=== PATIENT | male | born 1985 | race Caucasian/White ===

== ENCOUNTER → 2019-12-30 11:09 | Outpatient (BNVA) | payer OTHER, SELFPAY | PROVIDERS: PCP Nurse Practitioner Family; Referring Provider Nurse Practitioner Family; Visit Provider Hospitalist | DX: J45.50 Severe persistent asthma, uncomplicated (principal); J18.9 Pneumonia, unspecified organism; G47.30 Sleep apnea, unspecified; Z79.899 Other long term (current) drug therapy | CPT/HCPCS: 99214 ==

== ENCOUNTER 2020-03-07 14:37 | Outpatient (REF) | payer OTHER, SELFPAY | END 2020-03-07 14:38 | disposition home or self-care (01) | LOC: HO.LNP 14:37 | PROVIDERS: Visit Provider Family Medicine | DX: Z20.828 Contact with and (suspected) exposure to other viral communicable diseases (principal) | CPT/HCPCS: U0003 ==

== ENCOUNTER → 2020-04-06 15:13 | Outpatient (BNVA) | payer OTHER, SELFPAY | PROVIDERS: PCP Nurse Practitioner Family; Visit Provider Hospitalist ==

== ENCOUNTER → 2020-06-14 09:11 | Outpatient (BNVA) | payer OTHER, SELFPAY | PROVIDERS: PCP Nurse Practitioner Family; Visit Provider Hospitalist ==

== ENCOUNTER 2020-06-14 12:36 | Outpatient (REF) | payer OTHER, SELFPAY ==
[2020-06-14 16:43] LABS: SARS COV2 PCR INHOUSE POSITIVE (Negative)
== END 2020-06-14 12:37 | disposition home or self-care (01) ==
LOC: HO.LAB 12:36
PROVIDERS: Visit Provider Internal Medicine
DX: Z20.822 Contact with and (suspected) exposure to COVID-19 (principal)
CPT/HCPCS: C9803; U0003

== ENCOUNTER 2020-08-03 13:04 | Outpatient (REF) | payer OTHER, SELFPAY ==
[2020-08-03 14:36] LABS: MANUAL DIFF FLAG NO
[2020-08-03 14:44] LABS: Basophils Percent Auto 0.4 % (0-2); Eosinophils Absolute Auto 0.1 X10*3/uL (0.0-0.4); Eosinophils Percent Auto 1.5 % (0-4); Hematocrit 41.3 % (42-52); Imm Gran Abs Auto 0.02 X10*3/uL (0.00-0.03); Imm Gran Pct Auto 0.2 % (0.0-0.4); Lymphocytes Absolute Auto 2.4 X10*3/uL (1.2-4.9); Mean Corpuscular HGB Conc 31.5 g/dl (31.0-36.0); Mean Corpuscular Volume 79.4 fL (80-98); Mean Platelet Volume 11.4 fL (9.4-12.4); Monocytes Absolute Auto 0.4 X10*3/uL (0.1-1.2); Monocytes Percent Auto 4.7 % (2-11); Neutrophils Absolute Auto 5.6 X10*3/uL (2.0-8.3); Neutrophils Percent Auto 65.2 % (45-73); Platelet Count 249 X10*3/uL (160-400); Red Cell Distribution Width 13.9 % (11.0-16.0); White Blood Count 8.6 X10*3/uL (4.8-10.8)
[2020-08-03 15:30] LABS: Erythrocyte Sedimentation Rate 7 MM/HR (0-15)
[2020-08-06 07:39] LABS: SARS COV2 IgG Positive (Negative)
[2020-08-06 19:17] LABS: Immunoglobulin G Subclass 1 514 mg/dL (382-929); Immunoglobulin G Subclass 2 230 mg/dL (241-700); Immunoglobulin G Subclass 3 35 mg/dL (22-178); Immunoglobulin G Subclass 4 56.2 mg/dL (4-86); Immunoglobulin G Total 915 mg/dL (600-1640)
[2020-08-09 13:47] LABS: Asperg fumigatus Precip Abs NEGATIVE (NEGATIVE); Micropoly faeni Abs NEGATIVE (NEGATIVE); Pigeon serum Abs NEGATIVE (NEGATIVE); Saccharo pora viridis Abs NEGATIVE (NEGATIVE); Thermo candidus Abs NEGATIVE (NEGATIVE); Thermoa vulgaris #1 NEGATIVE (NEGATIVE)
== END 2020-08-03 13:05 | disposition home or self-care (01) ==
LOC: HO.LAB 13:04
PROVIDERS: PCP Nurse Practitioner Family; Visit Provider Hospitalist
DX: J45.51 Severe persistent asthma with (acute) exacerbation (principal); R91.8 Other nonspecific abnormal finding of lung field; J18.9 Pneumonia, unspecified organism; J44.9 Chronic obstructive pulmonary disease, unspecified
CPT/HCPCS: 36415; 82784; 82785; 85025; 85652; 86003; 86331; 86606; 86609; 86769; 99212

== ENCOUNTER → 2021-01-11 12:57 | Outpatient (BNVA) | payer OTHER, SELFPAY | PROVIDERS: PCP Nurse Practitioner Family; Visit Provider Hospitalist | DX: J45.51 Severe persistent asthma with (acute) exacerbation (principal); J18.9 Pneumonia, unspecified organism; J44.9 Chronic obstructive pulmonary disease, unspecified | CPT/HCPCS: 99212 ==

== ENCOUNTER → 2021-03-29 13:20 | Outpatient (BNVA) | payer OTHER, SELFPAY | PROVIDERS: PCP Nurse Practitioner Family; Visit Provider Hospitalist | DX: J45.51 Severe persistent asthma with (acute) exacerbation (principal); J18.9 Pneumonia, unspecified organism; J44.9 Chronic obstructive pulmonary disease, unspecified | CPT/HCPCS: 99212 ==

== ENCOUNTER → 2022-01-24 14:19 | Outpatient (BNVA) | payer OTHER, SELFPAY | PROVIDERS: PCP Nurse Practitioner Family; Visit Provider Hospitalist | DX: J45.51 Severe persistent asthma with (acute) exacerbation (principal); J18.9 Pneumonia, unspecified organism; J44.9 Chronic obstructive pulmonary disease, unspecified; G47.33 Obstructive sleep apnea (adult) (pediatric); Z99.89 Dependence on other enabling machines and devices | CPT/HCPCS: 99212 ==

== ENCOUNTER → 2022-04-28 19:30 | Outpatient (REF) | payer OTHER, SELFPAY | LOC: HO.SL 19:30 | PROVIDERS: PCP Nurse Practitioner Family; Visit Provider Hospitalist | DX: G47.33 Obstructive sleep apnea (adult) (pediatric) (principal) | CPT/HCPCS: 95811 ==

== ENCOUNTER 2024-04-05 10:40 | Outpatient (AMB) | payer OTHER, SELFPAY ==
[2024-04-05 10:53] VITALS: BP 140/82; PULSE 114; O2SAT 99; BMI 39.6
--- NOTE | 2024-04-05 10:53 | MHC.OFFWIV ---
Intake Vital Signs 04/05/24 10:53 Height 5 ft 4 in Weight 231 lb BMI 39.6 BP 140/82 H Blood Pressure Location Lt brachial Position Sitting Pulse 114 H Pulse Source Pulse Oximeter Pulse Oximetry (%) 99 Oxygen Delivery Method Room Air Intake Visit Reasons: EP pain & swollen RT hand Intake Note: Pt presents to the office today for c/o pain and swelling in his right hand x5 months. Pt has a history of right hand tendon repair about 15 years ago. Pt states he also has numbness and tingling in his right hand. Patient Tobacco Use Status: Former Tobacco user Allergies ampicillin Allergy (Severe, Verified 04/05/24 10:53) Rash penicillin V Allergy (Mild, Verified 04/05/24 10:53) RASH HPI HPI Comments History of Present Illness Details History of Present Illness - The patient is a 38 year old male presenting with hand pain and swelling. - He has a history of surgical intervention on hand tendon lacerations (punching a taillight) from childhood. - The pain and swelling started approximately 5.5 months ago, with the hand becoming severely swollen and purple. - Various at-home treatments like wrappings and tiger balm have been ineffective. - The patient has not undergone previous imaging or received medical evaluation for the current hand issue. - There are no familial histories of gout or kidney issues, reducing risk factors for certain conditions. - There is numbness in the hand and difficulty in making a fist, along with pain that might suggest arthritis. - No reported shoulder injury, but shoulder pain is present, resulting in the use of a sling for comfort. Physical Exam General: Cooperative, healthy appearing, comfortable, no acute distress and well developed Orientation: Patient oriented x3 Limitations: No limitations Head: Normal to inspection Ears: Hearing grossly normal bilaterally Nose: Normal External nose present Face and sinus: normal facial exam Eyes: Appearance normal, both eyes and all related structures Neck: Normal visual inspection and Yes full ROM Respiratory: Normal respiratory effort and able to speak in complete sentences Skin: no rashes noted Neuro: Patient oriented x3 Extremities: as below [facility] Medical History (Updated 04/05/24 @ 11:12 by Giuliana Martinez PA-C) GALE on CPAP Asthma-COPD overlap syndrome COVID-19 Pneumonitis Asthma Family History Father Substance use disorder Mental health disorder Sister Mental health disorder Brother Mental health disorder Other Asthma Social History Housing: House Patient Tobacco Use Status: Former Tobacco user e-Cigarette/Vaping Use: Never Used Second Hand Smoke Exposure: No service: No Current occupational status: unemployed Cognitive needs: No Hearing needs: No Vision needs: No Review of Systems Const All systems reviewed & are unremarkable except as noted in HPI and below Physical Exam Vital Signs: Last Vital Signs Pulse 135 H 04/05/24 10:53 BP 140/82 H 04/05/24 10:53 Pulse Ox 99 04/05/24 10:53 Oxygen Delivery Method Room Air 04/05/24 10:53 BMI result Body Mass Index 39.6 Extrem Left upper extremity: hand Details: abnormal to inspection (swelling, surgical scars across dorsal aspect of MCP's), normal capillary refill, neuromotor exam abnormal Details: thumb ADduction abnormal Details: weak and fingers 2-5 ABduction abnormal Details: weak, tendon exam normal, vascular exam Details: normal capillary refill, abnormal ROM of finger Details: unable to flex Location: of all digits and swelling (slight throughout); no tenderness, no abrasions, no lacerations and no ecchymosis Assessment & Plan Assessment & Plan (1) Right hand pain: Code(s): M79.641 - Pain in right hand Plan: Plan I have arranged for an x-ray of the patient's hand to investigate possible causes of the pain and swelling, such as osteoarthritis or other joint issues. The patient's history of tendon surgery and significant hand pain could suggest OA, RA or complications from past surgeries. Although familial history makes certain conditions like gout less probable, the presentation of symptoms and current pain suggest a potential musculoskeletal issue that requires detailed imaging for further management. Nerve involvement, as indicated by numbness, will be reevaluated following the x-ray results. The patient has been informed about the procedure and will return for follow-up discussion post-imaging to formulate an appropriate management plan. Home efforts to alleviate the issue have proven ineffective, and further diagnostic steps are essential to clarify the course of treatment. My interpretation of hand XR is negative for acute fx or dislocations, bone density appears low, OA vs RA. Will give steroid taper and will send message to PCP for possible Rheum workup vs Hand Ortho referral. Pt has PCP appt in October. Patient was informed and verbally consented to the use of an ambient scribe for clinic note documentation during this visit. Orders: Orders XR hand RT min 3V Today M79.641 - Pain in right hand Medications: New methylprednisolone PO PER PKG DIR for 6 days 21 ea 0RF Coding Level of Care Code Est Pt Level 4 (47331) Diagnoses Right hand pain M79.641
== END 2024-04-05 11:34 | disposition home or self-care (01) ==
PROVIDERS: PCP Nurse Practitioner Family; Visit Provider Physician Assistant
DX: M79.641 Pain in right hand (principal)

== ENCOUNTER → 2024-04-05 11:17 | Outpatient (BNV) | payer OTHER, SELFPAY | PROVIDERS: PCP Nurse Practitioner Family; Visit Provider Radiology Diagnostic Radiology | DX: M85.80 Other specified disorders of bone density and structure, unspecified site (principal) | CPT/HCPCS: 73130 ==

== ENCOUNTER 2024-05-18 13:36 | Outpatient (REF) | payer OTHER, SELFPAY ==
[2024-05-18 18:18] LABS: Influenza A PCR NEGATIVE (Negative); Influenza B PCR NEGATIVE (Negative); Resp Syncy Virus RNA Qual PCR NEGATIVE (Negative); SARS COV2 PCR INHOUSE NEGATIVE (Negative)
== END 2024-05-18 13:37 | disposition home or self-care (01) ==
LOC: HO.LAB 13:36
PROVIDERS: PCP Nurse Practitioner Family; Visit Provider Physician Assistant
DX: J45.901 Unspecified asthma with (acute) exacerbation (principal); R09.89 Other specified symptoms and signs involving the circulatory and respiratory systems; B34.9 Viral infection, unspecified; R05.8 Other specified cough
CPT/HCPCS: 0241U; 99212

== ENCOUNTER 2024-05-18 13:36 | Outpatient (AMB) | payer OTHER, SELFPAY ==
[2024-05-18 14:08] VITALS: BP 132/82; PULSE 89; TEMP 36.7; O2SAT 96; BMI 39.6
--- NOTE | 2024-05-18 14:08 | MHC.OFFWIV ---
Intake Vital Signs 05/18/24 14:08 Height 5 ft 4 in Weight 231 lb BMI 39.6 BP 132/82 Blood Pressure Location Lt brachial Position Sitting Pulse 89 Pulse Source Pulse Oximeter Temp 98.1 F Temp Source Oral Pulse Oximetry (%) 96 Oxygen Delivery Method Room Air Intake Visit Reasons: EP-asthma,coughing,[id number] Intake Note: pt is here for asthma, coughing, and congestion Patient Tobacco Use Status: Former Tobacco user Allergies ampicillin Allergy (Severe, Verified 05/18/24 14:08) Rash penicillin V Allergy (Mild, Verified 05/18/24 14:08) RASH Do you need a note to return to daycare/school/sports/work: Yes HPI HPI Comments History of Present Illness Details History - The patient is a 39-year-old male presenting with worsening asthma symptoms, worsening cough and nasal congestion. - Reports several-month duration nasal congestion with worsening over the last week. - Current complaints involve increased shortness of breath, reliance on an nebulizer solution, and limited efficacy from albuterol inhaler. - Household viral illness mentioned - Denies fever, ear pain or sinus pain - Nasal pressure reducing due to drainage; continues to use Flonase and Theraflu for symptom relief. - Asthma treatment history includes prednisone use, usually a tapering dose. - has follow up with Pulmonology coming up in a few weeks, anticipating med changes Physical Exam General: Cooperative, healthy appearing, comfortable and no acute distress Orientation/consciousness: Patient oriented x3 Limitations: No limitations Head: Normal to inspection Ears: Hearing grossly normal bilaterally, external ears normal and TM's normal bilaterally Nose: Normal external nose present, Normal nares present and No nasal discharge present Face and sinus: Normal facial exam and Yes sinuses nontender Mouth: Normal oral and palatal mucosa present and moist mucous membranes Throat: Yes tonsils normal, Yes uvula midline. Posterior oropharynx erythema Eyes: Appearance normal, both eyes and all related structures Neck: Normal visual inspection Respiratory: Clear to auscultation bilaterally. Normal respiratory effort, able to speak in complete sentences, Actively coughing, no respiratory distress, not tachypneic, no tripod positioning and no use of accessory muscles Cardiovascular: Regular rate and rhythm. Normal S1 and S2 Skin: No rashes or lesions noted Neuro: Patient oriented x3 Extremities: Normal to inspection and Yes no clubbing, cyanosis or edema [facility] Medical History (Updated 05/18/24 @ 14:27 by Giuliana Martinez PA-C) GALE on CPAP Asthma-COPD overlap syndrome COVID-19 Pneumonitis Asthma Family History Father Substance use disorder Mental health disorder Sister Mental health disorder Brother Mental health disorder Other Asthma Social History Housing: House Patient Tobacco Use Status: Former Tobacco user e-Cigarette/Vaping Use: Never Used Second Hand Smoke Exposure: No service: No Current occupational status: unemployed Cognitive needs: No Hearing needs: No Vision needs: No Review of Systems Const All systems reviewed & are unremarkable except as noted in HPI and below Physical Exam Vital Signs: Last Vital Signs Temp 98.1 F 05/18/24 14:08 Pulse 89 05/18/24 14:08 BP 132/82 05/18/24 14:08 Pulse Ox 96 05/18/24 14:08 Oxygen Delivery Method Room Air 05/18/24 14:08 BMI result Body Mass Index 39.6 Assessment & Plan Assessment & Plan (1) Asthma exacerbation, mild: Code(s): J45.901 - Unspecified asthma with (acute) exacerbation Plan: Plan I will prescribe a course of prednisone in a tapering regimen to manage the asthma exacerbation and assist with symptom relief. A nebulizer solution will be dispensed to replace treatments at the patient's requested pharmacy. Influenza, COVID-19, and RSV testing will be initiated to rule out viral causes, with results communicated through the patient portal. Ongoing relief measures will include the use of an albuterol inhaler, nasal saline, and Flonase, as well as [id number] medication such as Theraflu for symptomatic relief. Future asthma treatment adjustments and follow-up plans may depend on test outcomes and symptom progression. Patient was informed and verbally consented to the use of an ambient scribe for clinic note documentation during this visit (2) Acute viral syndrome: Code(s): B34.9 - Viral infection, unspecified Plan: as above Orders: Orders SARS-CoV2/FLU/RSV Today R09.89 - Other specified symptoms and signs involving the circulatory and respiratory systems Medications: New methylprednisolone PO PER PKG DIR for 6 days 21 ea 0RF Refilled albuterol sulfate 2.5 mg (3 mL) inhalation Q4H 30 days PRN 180 mL 0RF shortness of breath or wheezing Coding Level of Care Code Est Pt Level 3 (74286) Diagnoses Asthma exacerbation, mild J45.901 Acute viral syndrome B34.9
== END 2024-05-18 14:36 | disposition home or self-care (01) ==
PROVIDERS: PCP Nurse Practitioner Family; Visit Provider Physician Assistant
DX: J45.901 Unspecified asthma with (acute) exacerbation (principal); B34.9 Viral infection, unspecified

== ENCOUNTER 2024-05-18 13:37 | Outpatient (REF) | payer OTHER, SELFPAY ==
[2024-05-18 16:10] LABS: MANUAL DIFF FLAG NO
[2024-05-18 16:29] LABS: Basophils Percent Auto 0.5 % (0-2); Eosinophils Absolute Auto 0.5 X10*3/uL (0.0-0.4); Eosinophils Percent Auto 6.8 % (0-4); Hematocrit 35.9 % (42.0-52.0); Hemoglobin 11.4 g/dl (14.0-18.0); Imm Gran Abs Auto 0.02 X10*3/uL (0.00-0.03); Imm Gran Pct Auto 0.3 % (0.0-0.4); Lymphocytes Absolute Auto 1.9 X10*3/uL (1.2-4.9); Lymphocytes Percent Auto 28.7 % (20-40); Mean Corpuscular HGB Conc 31.8 g/dl (31.0-36.0); Mean Corpuscular Hemoglobin 26.3 pg (27.0-33.0); Mean Corpuscular Volume 82.9 fL (80.0-98.0); Mean Platelet Volume 11.2 fL (9.4-12.4); Monocytes Absolute Auto 0.5 X10*3/uL (0.1-1.2); Monocytes Percent Auto 7.5 % (2-11); Neutrophils Absolute Auto 3.8 x10*3/uL (2.0-8.3); Neutrophils Percent Auto 56.2 % (45-73); Platelet Count 226 X10*3/uL (160-400); Red Blood Count 4.33 X10*6/uL (4.60-5.80); Red Cell Distribution Width 13.9 % (11.0-16.0); White Blood Count 6.7 X10*3/uL (4.8-10.8)
[2024-05-18 17:03] LABS: Rheumatoid Factor < 13.0 IU/mL (<15.0)
[2024-05-18 17:14] LABS: Alanine Aminotransferase 8 U/L (0-40); Albumin Level 4.2 g/dL (3.5-5.0); Alkaline Phosphatase 61 U/L (39-117); Anion Gap 11 (12-20); Aspartate Amino Transferase 16 U/L (5-37); Bilirubin Total 0.3 mg/dL (0.0-1.0); Blood Urea Nitrogen 13 mg/dL (9-16); C Reactive Protein 2.31 mg/dL (< or = 0.50); Calcium 9.3 mg/dL (8.4-10.2); Carbon Dioxide 29 mmol/L (22-29); Chloride 107 mmol/L (96-108); Estimated Glomerular Filt Rate > 60; Glucose Random 92 mg/dL (60-115); Potassium 3.6 mmol/L (3.3-5.1); Sodium 143 mmol/L (135-145); Total Protein 7.3 g/dL (6.5-8.0)
[2024-05-18 18:50] LABS: Erythrocyte Sedimentation Rate 18 MM/HR (0-15)
[2024-05-22 08:19] LABS: Cyclic Citrullinated Peptide <16 UNITS
[2024-05-24 09:04] LABS: Anti Nuclear Antibody Screen NEGATIVE (NEGATIVE)
== END 2024-05-18 13:38 | disposition home or self-care (01) ==
LOC: HO.HMGCLDS 13:37
PROVIDERS: PCP Nurse Practitioner Family; Visit Provider Nurse Practitioner Family
DX: M19.049 Primary osteoarthritis, unspecified hand (principal)
CPT/HCPCS: 36415; 80053; 85025; 85652; 86038; 86140; 86200; 86431

== ENCOUNTER 2024-05-24 09:54 | Outpatient (REF) | payer OTHER, SELFPAY ==
[2024-05-24 13:21] LABS: MANUAL DIFF FLAG NO
[2024-05-24 13:37] LABS: Basophils Absolute Auto 0.1 X10*3/uL (0.0-0.2); Basophils Percent Auto 0.5 % (0-2); Eosinophils Absolute Auto 0.1 X10*3/uL (0.0-0.4); Eosinophils Percent Auto 0.5 % (0-4); Hemoglobin 12.3 g/dl (14.0-18.0); Imm Gran Abs Auto 0.06 X10*3/uL (0.00-0.03); Imm Gran Pct Auto 0.6 % (0.0-0.4); Immature Retic Fraction 22.1 % (2.3-13.4); Lymphocytes Absolute Auto 2.8 X10*3/uL (1.2-4.9); Lymphocytes Percent Auto 26.4 % (20-40); Mean Corpuscular HGB Conc 30.8 g/dl (31.0-36.0); Mean Corpuscular Hemoglobin 25.7 pg (27.0-33.0); Mean Corpuscular Volume 83.5 fL (80.0-98.0); Mean Platelet Volume 11.5 fL (9.4-12.4); Monocytes Absolute Auto 0.5 X10*3/uL (0.1-1.2); Monocytes Percent Auto 4.5 % (2-11); Neutrophils Absolute Auto 7.2 x10*3/uL (2.0-8.3); Neutrophils Percent Auto 67.5 % (45-73); Platelet Count 274 X10*3/uL (160-400); Red Blood Count 4.79 X10*6/uL (4.60-5.80); Retic HGB Equivalent 29.9 pg (30.0-35.0); Reticulocyte Percent 2.2 % (0.5-1.8); Reticulocytes Absolute 0.104 X10*6/uL (0.026-0.095); White Blood Count 10.6 X10*3/uL (4.8-10.8)
[2024-05-24 14:24] LABS: Alanine Aminotransferase 17 U/L (0-40); Albumin Level 4.5 g/dL (3.5-5.0); Alkaline Phosphatase 60 U/L (39-117); Anion Gap 14 (12-20); Aspartate Amino Transferase 17 U/L (5-37); Bilirubin Total 0.4 mg/dL (0.0-1.0); Blood Urea Nitrogen 18 mg/dL (9-16); Calcium 9.5 mg/dL (8.4-10.2); Carbon Dioxide 26 mmol/L (22-29); Chloride 105 mmol/L (96-108); Estimated Glomerular Filt Rate > 60; Glucose Random 83 mg/dL (60-115); Iron 48 mcg/dL (45-160); Percent Iron Saturation 17 % (15-50); Sodium 141 mmol/L (135-145); Total Iron Binding Capacity 286 mcg/dL (228-428); Total Protein 8.1 g/dL (6.5-8.0); Unsaturated Iron Binding 238 ug/dL
[2024-05-24 14:33] LABS: Folate 9.4 ng/mL (> or = 4.0); Vitamin B12 539 pg/mL (200-900)
[2024-05-24 15:22] LABS: Ferritin 61 ng/mL (20-250)
[2024-05-24 15:34] LABS: Lactate Dehydrogenase 362 U/L (118-273)
[2024-05-26 14:38] LABS: Hematocrit 38.8 % (38.5-50.0); Hemoglobin 12.6 g/dL (13.2-17.1); MCH 26.4 pg (27.0-33.0); MCV 81.3 fL (80.0-100.0); RBC 4.77 Million/uL (4.20-5.80); RDW 13.3 % (11.0-15.0)
== END 2024-05-24 09:55 | disposition home or self-care (01) ==
LOC: HO.HMGCLDS 09:54
PROVIDERS: PCP Nurse Practitioner Family; Visit Provider Nurse Practitioner Family
DX: D64.9 Anemia, unspecified (principal)
CPT/HCPCS: 36415; 80053; 82607; 82728; 82746; 83020; 83540; 83615; 85014; 85018; 85025; 85041; 85045

== ENCOUNTER 2024-05-26 09:42 | Outpatient (REF) | payer OTHER, SELFPAY ==
[2024-05-26 14:12] LABS: Haptoglobin 180 mg/dL (14-258)
== END 2024-05-26 09:43 | disposition home or self-care (01) ==
LOC: HO.HMGCLDS 09:42
PROVIDERS: PCP Nurse Practitioner Family; Visit Provider Nurse Practitioner Family
DX: D64.9 Anemia, unspecified (principal)
CPT/HCPCS: 36415; 83010

== ENCOUNTER 2024-06-08 12:42 | Outpatient (AMB) | payer OTHER, SELFPAY ==
[2024-06-08 12:43] VITALS: BP 122/80; PULSE 109; O2SAT 97
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
== END 2024-06-08 13:13 | disposition home or self-care (01) ==
PROVIDERS: PCP Nurse Practitioner Family; Visit Provider Physician Assistant
DX: T14.8XXA Other injury of unspecified body region, initial encounter (principal)

== ENCOUNTER → 2024-06-08 12:42 | Outpatient (BNVA) | payer OTHER, SELFPAY | PROVIDERS: PCP Nurse Practitioner Family; Visit Provider Physician Assistant ==

== ENCOUNTER 2024-07-08 15:03 | Outpatient (AMB) | payer OTHER, SELFPAY ==
--- NOTE | 2024-07-08 15:05 | A.OFFVIS_ITS ---
Vital Signs 07/08/24 15:06 Height 5 ft 4 in Weight 232 lb 9.403 oz BMI 39.9 BP 110/68 Blood Pressure Location Lt brachial Position Sitting Pulse 95 Pulse Source Pulse Oximeter Pulse Oximetry (%) 99 Oxygen Delivery Method Room Air Intake Visit Reasons: Re-establish care/Asthma Child Welfare Specialist Required: No Allergies ampicillin Allergy (Severe, Verified 07/08/24 15:09) Rash penicillin V Allergy (Mild, Verified 07/08/24 15:09) RASH HPI Comments Details: The patient is a 39 y/o gentleman with severe persistent asthma in addition to her sleep apnea. Her having his her asthma. Her been on aggressive respiratory regimen without any significant improvement. However, Trelegy has been partially helpful. I do believe that the higher dose trelegy 20omcg will be more effective for him. However, he did tell me his insurance company will no longer is going to cover in the year 2020 will have to find a different regimen. Based on his persistent symptoms with aggressive respiratory regimen I do believe that he would be a good candidate for biologic therapy. I will request additional blood work to see if he qualifies. In regards of his temp apnea who having some issues with air leakage through the mask. Needs to find any mask. We can always him come in with our respiratory therapist to be able to address his mask fitting issues. 04/06/2020 the patient has a telephone visit today. He did have an exposure to COVID-19 so therefore he is taking the Advil cautions. He continues to have shortness of breath and wheezing. Does use his rescue inhaler on a daily basis. He has been using the Trelegy inhaler which appears to be very effective for him and he has been feeling better with it. However, continues to be symptomatic regularly. Therefore his asthma still uncontrolled. Therefore, will add fluticasone HFA to his current respiratory regimen with hopes of decreasing the inflammatory airway disease. In the meantime he still needs to undergo blood work in order to see if he qualifies for biologic therapy. Otherwise patient is without any other complaints. He will be tested for COVID- 19 at this time. 06/14/2020 the patient is a telephone visit. He has been describing that he respiratory symptoms are worsening. He is complaining of dry cough moderate severity. Also having increasing wheezing and chest tightness. The patient has been using his rescue inhaler more often. He also continues to take his respiratory medications prescribed. However, feeling significantly better. He is wondering if she go on prednisone antibiotics. On another note the patient was exposed to some minor COVID-19. This point he was going to go and get tested. He denies any fevers or chills this time. He has not lost his sense of smell at time. 08/03/2020 the patient is here for pulmonary follow-up visit. Recently he was again started on a course of prednisone and antibiotics for an exacerbation. He has been getting infrequent. Has been on maximize respiratory therapy. At this point he has recovered from COVID-19. For he is feeling a little better. Although still having wheezing. Using his nebulizer couple times a day. I am hopeful that he is going to continue to improve without additional prednisone. For for in the meantime will check his blood work to assess his eosinophils in his IgE level as well as his IgG levels to further evaluate the frequent exacerbations. For the patient may be a good candidate for biologic therapy. 03/29/2021 the patient is here for a pulmonary follow-up visit. Overall the patient has been doing better. He is responding very well to the Trelegy. He also continues with the singular. At this point will continue to treat him with respiratory therapy in hold off on biologic regimens at this time. The patient has not required any prednisone which is reassuring. If his condition worsens we can always address the question of biologic therapy. in regards to his CPAP he is trying to get used to it. He is doing better with a fullface mask. Although is hard for him to get a good seal and wakes him up at nighttime. This keeps him to be able to stay adherent to the therapy. I did switch him over to an F 30 mask which he seems to be tolerating better. I am hopeful that with the change mask and better seal he would do fine just with his CPAP. In addition to this, the patient did not take Daliresp as of yet. She was concerned because of his psychiatric history. I did reassure him that is a safe medication he takes is slowly he will see how it affects him and if he sometime he should continue. But I did encourage him to start taking the medication at this time. 01/24/2022 the patient is here for pulmonary follow-up visit. The patient has multiple complaints. He has been having difficulties with CPAP. The pressure is initially felt low so therefore he increase them some. Still now the mask tends to have a lot air leakage and not allowing him to sleep having to adjust the meds the mask multiple times. Currently he is using an F 30 mask. The patient may do better with a foam mask. In the meantime I did download his CPAP. It appears that his AHI is elevated significantly up to 25 events an hour. He states that sometimes is even higher than not. Does use it for more than 4 hours a night. The therapy has yet to be effective for him. In view of the high pressures that he needs CPAP he will benefit from a BiPAP or ASV. I will request a titration study at this time. In meantime will continue to try to use it I will adjust the pressure some will also request a foam mask. I reached out to the [employer] to see if they can swap the current mask that he has for the proper 1 in order for him to tolerate the higher pressures. In regards to the asthma has been having increasing chest tightness. Initially was on Trelegy does seem to work well and then he was switched to Breo and Incruse and has not been as effective. Although recently he was also started on on low- dose metoprolol because high blood pressure. View of his significant asthma will reach out to his primary care provider to see if they can consider an alternative medication in view of his significant asthma. I will also try to switch him over to Breztri. 07/08/2024 the patient is here for a pulmonary follow-up visit. The patient overall has been doing okay. He has had multiple issues with his asthma where he has been to the urgent care about 3 times with chest tightness chest discomfort and shortness of breath. He has had received prednisone with improvement of the symptoms. Right now he has a rescue inhaler. He no longer has a maintenance inhaler and is not taking any allergy medicines. Will make sure to optimize his respiratory therapy at this time. I do believe the chest discomfort may be chest tightness and bronchospasms. However, with his history of sleep apnea the patient does have increased risk for cardiovascular disease. Therefore getting an EKG will be reasonable. The patient also has not had a chest x-ray and some time. The patient otherwise has been using the CPAP. The CPAP therapy has been affecting beneficial. He does use it for more than 4 hours a night. I do not have access to his machine right now so I can not downloaded. I will request access from his [employer] company, [employer]. As far as mask he does use a fullface mask any tolerates that well. He will continue to use his CPAP although the CPAP is probably older than 5 years. [employer] can not download the machine and get access to it it may be reasonable to get him a new machine order to be able to adjusted more efficiently. Will follow-up in 2 months he will bring his machine in and will also try to get access. He will continue his respiratory therapy as prescribed and if any issues arise he will call. If I find any abnormalities on his testing I will let him know. [facility] Medical History (Updated 07/10/24 @ 22:53 by Leandro Cadet MD) Chest pain Allergies GALE on CPAP Asthma-COPD overlap syndrome COVID-19 Pneumonitis Asthma Family History Father Substance use disorder Mental health disorder Sister Mental health disorder Brother Mental health disorder Other Asthma Social History Housing: House Patient Tobacco Use Status: Former Tobacco user e-Cigarette/Vaping Use: Never Used Second Hand Smoke Exposure: No service: No Current occupational status: unemployed Cognitive needs: No Hearing needs: No Vision needs: No Review of Systems Const Denies chills, Denies daytime sleepiness, Denies fatigue, Denies fever(s), Denies poor appetite, Denies snoring, Denies stops breathing during sleep, Denies weakness, Denies weight gain and Denies weight loss Eyes Denies loss of vision ENT Denies dizziness and Denies hearing loss Card Denies chest pain, Denies irregular heart rhythm, Denies claudication, Denies leg edema, Denies lightheadedness, Denies palpitations, Reports dyspnea on exertion and Denies orthopnea Resp Reports cough, Denies excessive phlegm production, Reports dyspnea on exertion, Denies snoring and Reports wheezing GI Denies abdominal pain, Denies hematochezia, Denies change in bowel habits, Denies nausea and Denies vomiting Denies dysuria and Denies urinary frequency Musc Denies arthralgias, Denies muscle weakness, Denies numbness and Denies other Skin/Breast Denies nail changes and Denies rash Neuro Denies Abnormal speech present, Denies dizziness, Denies loss of vision, Denies memory loss, Denies numbness and Denies weakness Psych Denies depression and Denies memory loss Endo Denies fatigue and Denies palpitations Marcus/Lymph Denies easy bruising Aller/Immun Reports wheezing Physical Exam Vital Signs: Last Vital Signs Pulse 95 07/08/24 15:06 BP 110/68 07/08/24 15:06 Pulse Ox 99 07/08/24 15:06 Oxygen Delivery Method Room Air 07/08/24 15:06 BMI result Body Mass Index 39.9 Const General: alert Neck Neck: Yes normal visual inspection, Yes full ROM and Yes no lymphadenopathy Chest Chest palpation & inspection: normal inspection of the chest Resp Auscultation: no wheezes and diminished lung sounds Cardio Rate: regular rate Rhythm: regular rhythm Heart sounds: S1 normal heart sound present and S2 normal heart sound present GI Palpation (GI): Soft to palpation and nontender Auscultation: normal bowel sounds Skin General skin exam: rashes and/or lesions noted Neuro Speech: No Abnormal speech present Assessment & Plan Assessment & Plan (1) Asthma: Code(s): J45.909 - Unspecified asthma, uncomplicated Category: Medical Qualifiers: Asthma complication type: with acute exacerbation Asthma persistence: persistent Asthma severity: severe Qualified Code(s): J45.51 - Severe persist ent asthma with (acute) exacerbation (2) Pneumonitis: Comment: Based on previous CTA Code(s): J18.9 - Pneumonia, unspecified organism Category: Medical (3) Asthma-COPD overlap syndrome: Code(s): J44.9 - Chronic obstructive pulmonary disease, unspecified Category: Medical (4) GALE on CPAP: Code(s): G47.33 - Obstructive sleep apnea (adult) (pediatric); Z99.89 - Dependence on other enabling machines and devices Category: Medical (5) Allergies: Code(s): T78.40XA - Allergy, unspecified, initial encounter Category: Medical Qualifiers: Encounter type: initial encounter Qualified Code(s): T78.40XA - Allergy, unspecified, initial encounter (6) Chest pain: Code(s): R07.9 - Chest pain, unspecified Category: Medical Qualifiers: Chest pain type: intercostal pain Qualified Code(s): R07.82 - Intercostal pain Plan start Symbicort LINDA as needed Continue Singulair APAP with F30 Mask with very high AHI. Needs to have a titration study to correct high AHI Requesting F20 medium airtouch foam mask from [facility] CXR EKG Consider cardiac evaluation F/U 2 months Orders: Orders Complete Blood Count Auto Diff 07/08/24 J45.51 - Severe persistent asthma with (acute) exacerbation, R07.9 - Chest pain, unspecified, T78.40XA - Allergy, unspecified, initial encounter Basic Metabolic Panel 07/08/24 J45.51 - Severe persistent asthma with (acute) exacerbation, R07.9 - Chest pain, unspecified, T78.40XA - Allergy, unspecified, initial encounter ECG 12 lead EKG 07/08/24 J44.9 - Chronic obstructive pulmonary disease, unspecified, J45.51 - Severe persistent asthma with (acute) exacerbation, R07.9 - Chest pain, unspecified, T78.40XA - Allergy, unspecified, initial encounter Resp Allergy Profile Region I 07/08/24 J45.51 - Severe persistent asthma with (acute) exacerbation, R07.9 - Chest pain, unspecified, R91.1 - Solitary pulmonary nodule, T78.40XA - Allergy, unspecified, initial encounter Erythrocyte Sedimentation Rate 07/08/24 J45.51 - Severe persistent asthma with (acute) exacerbation, R07.9 - Chest pain, unspecified, T78.40XA - Allergy, unspecified, initial encounter XR chest 2V 07/08/24 J45.51 - Severe persistent asthma with (acute) exacerbation, R07.9 - Chest pain, unspecified, T78.40XA - Allergy, unspecified, initial encounter Medications: New albuterol sulfate 90 mcg/actuation 2 inhalations inhalation Q6H PRN 18 grams 12RF shortness of breath or wheezing 30 days J44.9 - Chronic obstructive pulmonary disease, unspecified budesonide-formoterol 160-4.5 mcg/actuation (Symbicort) 2 puffs inhalation BID 10.2 grams 11RF 30 days J44.89 - Other specified chronic obstructive pulmonary disease montelukast 10 mg PO DAILY 30 tabs 11RF 30 days J45.909 - Unspecified asthma, uncomplicated Refilled albuterol sulfate 2.5 mg (3 mL) inhalation Q4H PRN 180 mL 11RF shortness of breath or wheezing 30 days Coding Level of Care Code Est Pt Level 5 (66267) Diagnoses Severe persistent asthma with acute exacerbation J45.51 Asthma complication type: with acute exacerbation Asthma persistence: persistent Asthma severity: severe Pneumonitis J18.9 Asthma-COPD overlap syndrome J44.9 GALE on CPAP G47.33; Z99.89 Allergy, initial encounter T78.40XA Encounter type: initial encounter Intercostal pain R07.82 Chest pain type: intercostal pain Time Spent (min) 30
[2024-07-08 15:06] VITALS: BP 110/68; PULSE 95; O2SAT 99; BMI 39.9
== END 2024-07-08 15:38 | disposition home or self-care (01) ==
LOC: HO.HPS 15:04
PROVIDERS: PCP Nurse Practitioner Family; Visit Provider Hospitalist
DX: J45.51 Severe persistent asthma with (acute) exacerbation (principal); J18.9 Pneumonia, unspecified organism; G47.33 Obstructive sleep apnea (adult) (pediatric); Z99.89 Dependence on other enabling machines and devices; R07.82 Intercostal pain
CPT/HCPCS: 99214

== ENCOUNTER → 2024-07-08 15:03 | Outpatient (BNVA) | payer OTHER, SELFPAY | PROVIDERS: PCP Nurse Practitioner Family; Visit Provider Hospitalist | DX: J45.51 Severe persistent asthma with (acute) exacerbation (principal); G47.30 Sleep apnea, unspecified; J18.9 Pneumonia, unspecified organism; J44.9 Chronic obstructive pulmonary disease, unspecified; G47.33 Obstructive sleep apnea (adult) (pediatric); R07.82 Intercostal pain; T78.40XA Allergy, unspecified, initial encounter; X58.XXXA Exposure to other specified factors, initial encounter; Z99.89 Dependence on other enabling machines and devices | CPT/HCPCS: 99212 ==

== ENCOUNTER 2024-09-08 11:02 | Outpatient (AMB) | payer OTHER, SELFPAY ==
--- NOTE | 2024-09-08 11:28 | A.OFFVIS_ITS ---
Vital Signs 09/08/24 11:36 Height 5 ft 4 in Weight 241 lb 10.026 oz BMI 41.5 BP 130/82 Blood Pressure Location Lt brachial Position Sitting Pulse 78 Pulse Source Pulse Oximeter Pulse Oximetry (%) 98 Oxygen Delivery Method Room Air Intake Visit Reasons: osteoarthritis/New Patient Intake Note: Patient presents for Osteoarthritis. Allergies ampicillin Allergy (Severe, Verified 09/08/24 11:31) Rash penicillin V Allergy (Mild, Verified 09/08/24 11:31) RASH Medication List - Last Reconciled 09/08/24 by Miroslava Cornejo MD albuterol sulfate 2.5 mg (3 mL) inhalation Q4H PRN 30 days albuterol sulfate 90 mcg/actuation 2 inhalations inhalation Q6H PRN 30 days budesonide-formoterol 160-4.5 mcg/actuation (Symbicort) 2 puffs inhalation BID 30 days folic acid 1 mg PO DAILY methotrexate sodium 15 mg (6 x 2.5 mg) PO QWEEK 90 days montelukast 10 mg PO DAILY 30 days Ventolin HFA 90 mcg/actuation (albuterol sulfate) 2 puffs PO Q4-6H PRN NS HPI Comments Details: Patient is a 39-year-old male former smoker with asthma, hypertension and GALE on CPAP here today for evaluation of polyarticular joint pain Patient notes that for the past few years he has been having polyarticular joint pain especially involving his hands, associated with prolonged AM stiffness, swelling and difficulty making a fist. Followed up with his PCP who got Hand XRs which showed periarticular osteopenia and erosions. No family history of RA but has a brother with MS PFSH Medical History (Updated 09/08/24 @ 12:49 by Miroslava Cornejo MD) Seronegative rheumatoid arthritis Chest pain Allergies GALE on CPAP Asthma-COPD overlap syndrome COVID-19 Pneumonitis Asthma Family History (Updated 09/08/24 @ 11:34 by NEELIMA Melvin) Father Substance use disorder Mental health disorder Sister Mental health disorder Brother Mental health disorder Mother Hypertension Other Asthma Social History Household Members: Family Housing: House Alcohol intake: former Patient Tobacco Use Status: Former Tobacco user Tobacco use type: Cigarette Years Smoked: 10 e-Cigarette/Vaping Use: Never Used Second Hand Smoke Exposure: No service: No Current occupational status: unemployed Cognitive needs: No Hearing needs: No Vision needs: No Review of Systems Const Details: Review of Systems Constitutional: Denies fever, chills, weight loss ENT: Denies vision changes, eye pain or eye redness, dental caries, dry mouth GI: Denies nausea, vomiting, diarrhea, abdominal pain, change in BM Pulm: Denies SOB, BELCHER, hemoptysis, wheezing Cards: Denies chest pain, palpitations Skin: Denies Raynaud's, rash, nail changes, photosensitivity, INSOLE CHANNELER: Denies headaches, weakness, paresthesias, recurrent falls MSK: as per HPI All other systems reviewed and are unremarkable except noted above Physical Exam Vital Signs: Last Vital Signs Pulse 78 09/08/24 11:36 BP 130/82 09/08/24 11:36 Pulse Ox 98 09/08/24 11:36 Oxygen Delivery Method Room Air 09/08/24 11:36 BMI result Body Mass Index 41.5 Vital signs reviewed Physical Examination CONSTITUITIONAL Patient alert and cooperative. Well appearing and in no apparent painful distress HEENT Conjunctiva and sclera clear. No lymphadenopathy. CHEST/RESPIRATORY SYSTEM Normal respiratory effort and able to speak in complete sentences. Clear to auscultation bilaterally. No crackles, rales, rhonchi, wheezes heard. CARDIAC SYSTEM Regular rate and rhythm. S1 and S2 heard no murmurs. Radial pulses intact bilaterally MSK Hands * Not able to make a full fist bilaterally. No TTP of the MCPs but notable TTP of the PIPs * Has a scar over his right 3rd and 4th MCPs Wrists * Right Wrist: Full ROM. 70 degrees of wrist flexion, 80 degrees of wrist extension. No swelling or TTP * Left Wrist: Full ROM. 70 degrees of wrist flexion, 80 degrees of wrist extensi on. No swelling or TTP Elbows * Right Elbow: Full ROM. No swelling or TTP. No TTP of the medial and lateral epicondyles * Left Elbow: Full ROM. No swelling or TTP. No TTP of the medial and lateral epicondyles Shoulders * Right shoulder: Full ROM. No swelling noted. TTP of the AC joint, and subacromial bursa * Left shoulder: Full ROM. No swelling noted. TTP of the AC joint, and subacromial bursa Knees * Right knee: Full ROM. No swelling noted. No TTP of the knee joint lie or pes anserine bursa * Left knee: Full ROM. No swelling noted. No TTP of the knee joint lie or pes anserine bursa. Ankles * Right ankle: Good ankle dorsiflexion and plantar flexion. No swelling. No TTP of the ankle joint * Left ankle: Good ankle dorsiflexion and plantar flexion. No swelling. No TTP of the ankle joint Feet * Right foot: Negative squeeze test * Left foot: Negative squeeze test Tender points? * No tenderness to palpation of the bilateral trapezius, supraspinatus, anterior costochondral junctions, bilateral suboccipital muscle insertions SKIN No rashes Results Reviewed Results Reviewed: Laboratory Tests 05/18/24 05/24/24 13:45 10:00 WBC 10.6 RBC 4.79 RBC (Send Out) 4.77 Hgb 12.3 L Hct 40.0 L Plt Count 274 ESR 18 H Sodium 141 Potassium 4.0 Chloride 105 Carbon Dioxide 26 BUN 18 H Creatinine 0.85 Total Bilirubin 0.4 AST 17 ALT 17 Alkaline Phosphatase 60 C-Reactive Protein 2.31 H XR Right Hand 03/2024 FINDINGS: There is notable periarticular osteopenia. No definite fracture, dislocation, or suspicious bone lesion. Periarticular erosions are present in the MCPs, as well as the PIP joints of the second through fourth digits. These erosions are well-defined, and may be suggestive of rheumatoid arthropathy versus reactive arthritis. Possible erosion versus postoperative changes at the first CMC joint. Otherwise, carpal bones intact and normally aligned. No chondrocalcinosis. Soft tissues appear grossly normal. IMPRESSION: 1. Findings of inflammatory arthropathy with periarticular osteopenia and well-defined periarticular erosions in the MCPs and PIPs. Findings suggest rheumatoid arthritis versus reactive arthritis. Assessment & Plan Assessment & Plan (1) Seronegative rheumatoid arthritis: Comment: 08/2024 -RF/-CCP Code(s): M06.00 - Rheumatoid arthritis without rheumatoid factor, unspecified site Category: Medical Plan: #Seronegative RA Patient is a 39 y.o. male with new diagnosis of RA based on arthritis, periarticular osteopenia and erosions on XR. RF and CCP negative Discussed with patient and , the diagnosis and the treatment plan. Will start with methotrexate Plan - Methotrexate 15mg weekly - Folic acid 1mg daily - Labs today: CBC, CMP, ESR, CRP, hepatitis panel, T spot - RTC 4 months - Labs before visit: CBC, CMP, ESR, CRP (2) Encounter for methotrexate monitoring: Code(s): Z51.81 - Encounter for therapeutic drug level monitoring; Z79.631 - care home (current) use of antimetabolite agent Plan: #Long-term Current Use of Methotrexate Discussed with patient the benefits and risks of methotrexate for managing their rheumatic condition Benefits include reduced pain, reduced mortality, maintenance of remission and reduction of flares Risks include oral ulcers, photosensitivity, hepatotoxicity, hematologic toxicity, pneumonitis, flu-like symptoms (especially day after administration), nodulosis, lymphomas ? Limit alcohol and avoid Bactrim ? Monitoring: CBC, BMP, LFTs every 3-4 months and hepatitis serologies as needed Plan I spent 48 minutes reviewing the record and labs, taking a history, examining the patient, discussing the treatment plan, counselling on the new diagnosis of RA, ordering diagnostic work up and documenting in the medical record Orders: Orders Comprehensive Met. Panel 4 Months M06.00 - Rheumatoid arthritis without rheumatoid factor, unspecified site Hepatitis A,B,C Profile Today M06.00 - Rheumatoid arthritis without rheumatoid factor, unspecified site T Spot TB Today M06.00 - Rheumatoid arthritis without rheumatoid factor, unspecified site Comprehensive Met. Panel Today M06.00 - Rheumatoid arthritis without rheumatoid factor, unspecified site C Reactive Protein Today M06.00 - Rheumatoid arthritis without rheumatoid factor, unspecified site Erythrocyte Sedimentation Rate Today M06.00 - Rheumatoid arthritis without rheumatoid factor, unspecified site XR wrist LT min 3V Today M06.00 - Rheumatoid arthritis without rheumatoid factor, unspecified site XR foot LT min 3V Today M06.00 - Rheumatoid arthritis without rheumatoid factor, unspecified site Complete Blood Count Auto Diff 4 Months M06.00 - Rheumatoid arthritis without rheumatoid factor, unspecified site C Reactive Protein 4 Months M06.00 - Rheumatoid arthritis without rheumatoid factor, unspecified site Erythrocyte Sedimentation Rate 4 Months M06.00 - Rheumatoid arthritis without rheumatoid factor, unspecified site Complete Blood Count Auto Diff Today M06.00 - Rheumatoid arthritis without rheumatoid factor, unspecified site XR wrist RT min 3V Today M06.00 - Rheumatoid arthritis without rheumatoid factor, unspecified site XR hand LT min 3V Today M06.00 - Rheumatoid arthritis without rheumatoid factor, unspecified site XR foot RT min 3V Today M06.00 - Rheumatoid arthritis without rheumatoid factor, unspecified site XR ankle RT min 3V Today M06.00 - Rheumatoid arthritis without rheumatoid factor, unspecified site XR ankle LT min 3V Today M06.00 - Rheumatoid arthritis without rheumatoid factor, unspecified site Medications: New folic acid 1 mg PO DAILY 90 tabs 1RF M06.00 - Rheumatoid arthritis without rheumatoid factor, unspecified site methotrexate sodium 15 mg (6 x 2.5 mg) PO QWEEK 78 tabs 1RF 90 days M06.00 - Rheumatoid arthritis without rheumatoid factor, unspecified site Discontinued ibuprofen Discontinued Reason: Doctor's Order 600 mg PO TID 20 tabs 0RF Coding Level of Care Code New Pt Level 4 (50550) Complex EM visit Add On G2211 Diagnoses Seronegative rheumatoid arthritis M06.00 Encounter for methotrexate monitoring Z51.81; Z79.631
[2024-09-08 11:36] VITALS: BP 130/82; PULSE 78; O2SAT 98; BMI 41.5
== END 2024-09-08 12:29 | disposition home or self-care (01) ==
LOC: HO.RHE 11:03
PROVIDERS: PCP Nurse Practitioner Family; Visit Provider Student in an Organized Health Care Education/Training Program
DX: M06.00 Rheumatoid arthritis without rheumatoid factor, unspecified site (principal); Z51.81 Encounter for therapeutic drug level monitoring; Z79.631 Long term (current) use of antimetabolite agent
CPT/HCPCS: 99204; G2211

== ENCOUNTER → 2024-09-08 11:02 | Outpatient (BNVA) | payer OTHER, SELFPAY | PROVIDERS: PCP Nurse Practitioner Family; Visit Provider Student in an Organized Health Care Education/Training Program | DX: Z51.81 Encounter for therapeutic drug level monitoring (principal); M06.00 Rheumatoid arthritis without rheumatoid factor, unspecified site; M85.80 Other specified disorders of bone density and structure, unspecified site; Z79.631 Long term (current) use of antimetabolite agent | CPT/HCPCS: 99202 ==

== ENCOUNTER 2024-09-14 11:15 | Outpatient (REF) | payer OTHER, SELFPAY ==
--- NOTE | ~2024-09-14 | XR_ITS ---
EXAMINATION: XR HAND, LEFT CLINICAL INFORMATION: M06.00 - Rheumatoid arthritis without rheumatoid factor, unspecified site COMPARISON: None available. TECHNIQUE: PA, lateral, and oblique views of the left hand. FINDINGS: Focal area of osteopenia is noted involving the distal radial aspect of scaphoid. There is mild irregularity of the radial side of the fifth metacarpal head. There is corticated scalloped irregularity of the dorsal first metacarpal XR/XR hand LT min 3V IMPRESSION: Suspected chronic erosions involving the first and fifth metacarpal heads. Age-indeterminate erosive change involving distal radial aspect of the scaphoid. Electronically signed by: Dane Ellis MD 09/14/2024 12:47 PM EDT
--- NOTE | ~2024-09-14 | XR_ITS ---
EXAMINATION: XR FOOT 3 OR MORE VIEWS RIGHT, XR ANKLE 3 OR MORE VIEWS RIGHT HISTORY: M06.00 - Rheumatoid arthritis without rheumatoid factor, unspecified site COMPARISON: There are no prior studies available for comparison. FINDINGS: Six views of the right foot and ankle are submitted. The bones are osteopenic. There is a probable erosion involving the lateral aspect of the base of 3rd metatarsal. There is mild narrowing of the 1st MTP joint. The joint spaces are preserved. The soft tissues are unremarkable. XR/XR foot RT min 3V IMPRESSION: Probable erosion involving the lateral aspect of the base of the 3rd metatarsal. Mild narrowing of the 1st MTP joint. Electronically signed by: Mandeep Perry MD 09/14/2024 12:30 PM EDT
--- NOTE | ~2024-09-14 | XR_ITS ---
EXAMINATION: XR FOOT 3 OR MORE VIEWS RIGHT, XR ANKLE 3 OR MORE VIEWS RIGHT HISTORY: M06.00 - Rheumatoid arthritis without rheumatoid factor, unspecified site COMPARISON: There are no prior studies available for comparison. FINDINGS: Six views of the right foot and ankle are submitted. The bones are osteopenic. There is a probable erosion involving the lateral aspect of the base of 3rd metatarsal. There is mild narrowing of the 1st MTP joint. The joint spaces are preserved. The soft tissues are unremarkable. XR/XR ankle RT min 3V IMPRESSION: Probable erosion involving the lateral aspect of the base of the 3rd metatarsal. Mild narrowing of the 1st MTP joint. Electronically signed by: Mandeep Perry MD 09/14/2024 12:30 PM EDT
--- NOTE | ~2024-09-14 | XR_ITS ---
EXAMINATION: XR WRIST, RIGHT CLINICAL INFORMATION: M06.00 - Rheumatoid arthritis without rheumatoid factor, unspecified site COMPARISON: None available. TECHNIQUE: PA, lateral, and oblique views of the right wrist. FINDINGS: No definite erosive changes are identified. Joint spaces are aligned without diastases or abnormal offset. No osteophytes are seen. XR/XR wrist RT min 3V IMPRESSION: Unremarkable right wrist. Electronically signed by: Dane Ellis MD 09/14/2024 12:49 PM EDT
--- NOTE | ~2024-09-14 | XR_ITS ---
EXAMINATION: XR WRIST, LEFT CLINICAL INFORMATION: M06.00 - Rheumatoid arthritis without rheumatoid factor, unspecified site COMPARISON: None available. TECHNIQUE: PA, lateral, navicular and oblique views of the left wrist. FINDINGS: Joint spaces are preserved. No erosions are clearly evident. No other degenerative changes are evident. XR/XR wrist LT min 3V IMPRESSION: Unremarkable left wrist Electronically signed by: Dane Ellis MD 09/14/2024 12:43 PM EDT
--- NOTE | ~2024-09-14 | XR_ITS ---
EXAMINATION: XR ANKLE 3 OR MORE VIEWS LEFT, XR FOOT 3 OR MORE VIEWS LEFT HISTORY: M06.00 - Rheumatoid arthritis without rheumatoid factor, unspecified site COMPARISON: There are no prior studies available for comparison. FINDINGS: Six views of the left foot and ankle are submitted. The bones are mildly osteopenic. There is no fracture or dislocation. The joint spaces are preserved. The soft tissues are unremarkable. XR/XR ankle LT min 3V IMPRESSION: Unremarkable examination of the left foot and ankle. Electronically signed by: Mandeep Perry MD 09/14/2024 12:31 PM EDT
--- NOTE | ~2024-09-14 | XR_ITS ---
EXAMINATION: XR ANKLE 3 OR MORE VIEWS LEFT, XR FOOT 3 OR MORE VIEWS LEFT HISTORY: M06.00 - Rheumatoid arthritis without rheumatoid factor, unspecified site COMPARISON: There are no prior studies available for comparison. FINDINGS: Six views of the left foot and ankle are submitted. The bones are mildly osteopenic. There is no fracture or dislocation. The joint spaces are preserved. The soft tissues are unremarkable. XR/XR foot LT min 3V IMPRESSION: Unremarkable examination of the left foot and ankle. Electronically signed by: Mandeep Perry MD 09/14/2024 12:31 PM EDT
[2024-09-14 13:12] LABS: MANUAL DIFF FLAG NO
[2024-09-14 13:32] LABS: Hematocrit 38.2 % (42.0-52.0); Hemoglobin 12.2 g/dl (14.0-18.0); Imm Gran Abs Auto 0.01 X10*3/uL (0.00-0.03); Imm Gran Pct Auto 0.2 % (0.0-0.4); Lymphocytes Absolute Auto 1.8 X10*3/uL (1.2-4.9); Mean Corpuscular HGB Conc 31.9 g/dl (31.0-36.0); Mean Corpuscular Hemoglobin 25.8 pg (27.0-33.0); Mean Corpuscular Volume 80.9 fL (80.0-98.0); NRBC Abs Auto 0.000 X10*3/uL (0.0-0.012); NRBC Pct Auto 0.0 /100WBC (0.0-0.2); Platelet Count 210 X10*3/uL (160-400); Red Blood Count 4.72 X10*6/uL (4.60-5.80); White Blood Count 5.0 X10*3/uL (4.8-10.8)
[2024-09-14 14:00] LABS: Alanine Aminotransferase 14 U/L (0-40); Albumin Level 4.4 g/dL (3.5-5.0); Alkaline Phosphatase 53 U/L (39-117); Anion Gap 10 (12-20); Aspartate Amino Transferase 18 U/L (5-37); Blood Urea Nitrogen 12 mg/dL (9-16); Calcium 9.0 mg/dL (8.4-10.2); Carbon Dioxide 29 mmol/L (22-29); Chloride 104 mmol/L (96-108); Estimated Glomerular Filt Rate > 60; Potassium 4.0 mmol/L (3.3-5.1); Sodium 139 mmol/L (135-145); Total Protein 6.8 g/dL (6.5-8.0)
[2024-09-15 08:35] LABS: HBS Num1 6.42 mIU/mL (0-7.99); HBc Num1 0.06 S/CO (0.00-0.79); HBsAGNum1 0.33 S/CO (0.00-0.99); Hepatitis A Antibody IgM 0.20 Index (0-0.79); Hepatitis B Surface Antigen Negative (Negative); ~HepC Num1 0.21 S/CO (0.00-0.79); ~Hepatitis A Antibody IgM Nonreactive (Nonreactive); ~Hepatitis B Surface Antibody NONREACTIVE (Nonreactive); ~Hepatitis C Antibody Nonreactive (Nonreactive)
[2024-09-15 19:08] LABS: Class Alternaria alternata 0; Class Aspergillus fumigatus 0; Class Bermuda Grass 0; Class Birch 0; Class Cat Dander 0; Class Cladosporium herbarum 0; Class Cockroach 3; Class Common Ragweed 2; Class Cottonwood 0; Class Derm. pterony 0/1; Class Dermatophagoides farinae 1; Class Dog Dander 0; Class Elm 0; Class Maple Box Elder 0; Class Mountain Cedar 0; Class Mouse Urine Protein 0; Class Mugwort 0; Class Oak 0; Class Penicillium crysogenum 0; Class Rough Pigweed 0; Class Sheep Sorrel 0; Class Sycamore 0; Class Timothy Grass 0; Class Walnut Tree 0; Class White Ash 0; Class White Mulberry 0; D002 - IgE D farinae 0.47 kU/L; E001 - IgE Cat Dander <0.10 kU/L; E005 - IgE Dog Dander <0.10 kU/L; G006 - IgE Timothy Grass <0.10 kU/L; I006-IgE Cockroach, German 3.74 kU/L; M002 - IgE Cladosporium herbar <0.10 kU/L; M003 - IgE Aspergillus fumigat <0.10 kU/L; M006 - IgE Alternaria alternat <0.10 kU/L; T001 IgE Maple/Box Elder <0.10 kU/L; T006 - IgE Cedar, Mountain <0.10 kU/L; T007 - IgE Oak, White <0.10 kU/L; T008 IgE Elm, American <0.10 kU/L; T010 - IgE Walnut <0.10 kU/L; T011 - IgE Maple Leaf Sycamore <0.10 kU/L; T014 - IgE Cottonwood <0.10 kU/L; T015 - IgE Ash, White <0.10 kU/L; T070 - IgE White Mulberry <0.10 kU/L; W001 - IgE Ragweed, Short 0.73 kU/L; W006 - IgE Mugwort <0.10 kU/L; W014 IgE Pigweed, Common <0.10 kU/L; W018 IgE Sheep Sorrel <0.10 kU/L
[2024-09-19 01:18] LABS: TS Negative Control Passed; TS Panel A 0; TS Panel B 0; TS Positive Control Passed; TSpotTB Negative (Negative)
== END 2024-09-14 11:16 | disposition home or self-care (01) ==
LOC: HO.HMGCX 11:15
PROVIDERS: Hospitalist; PCP Nurse Practitioner Family; Visit Provider Student in an Organized Health Care Education/Training Program
DX: M06.00 Rheumatoid arthritis without rheumatoid factor, unspecified site (principal); D64.9 Anemia, unspecified; R91.1 Solitary pulmonary nodule; T78.40XA Allergy, unspecified, initial encounter; J45.51 Severe persistent asthma with (acute) exacerbation; R07.9 Chest pain, unspecified
CPT/HCPCS: 36415; 73110; 73130; 73610; 73630; 80053; 82785; 83010; 83615; 85025; 85652; 86003; 86140; 86481; 86704; 86706; 86709; 86803; 87340

== ENCOUNTER → 2024-09-14 11:37 | Outpatient (BNV) | payer OTHER, SELFPAY | PROVIDERS: PCP Nurse Practitioner Family; Visit Provider Radiology Diagnostic Radiology | DX: M19.071 Primary osteoarthritis, right ankle and foot (principal); M85.872 Other specified disorders of bone density and structure, left ankle and foot; M06.00 Rheumatoid arthritis without rheumatoid factor, unspecified site; M15.4 Erosive (osteo)arthritis | CPT/HCPCS: 73610; 73630 ==

== ENCOUNTER 2025-01-03 13:30 | Outpatient (AMB) | payer OTHER, SELFPAY ==
--- NOTE | 2025-01-03 13:37 | A.OFFVIS_ITS ---
Vital Signs 01/03/25 13:42 Height 5 ft 4 in Weight 245 lb 13.047 oz BMI 42.2 BP 130/92 H Blood Pressure Location Lt brachial Position Sitting Pulse 96 Pulse Source Pulse Oximeter Pulse Oximetry (%) 98 Oxygen Delivery Method Room Air Intake Visit Reasons: osteoarthritis Intake Note: Patient presents for OA follow up. Allergies ampicillin Allergy (Severe, Verified 01/03/25 13:41) Rash penicillin V Allergy (Mild, Verified 01/03/25 13:41) RASH Medication List - Last Reconciled 01/03/25 by Miroslava Cornejo MD albuterol sulfate 2.5 mg (3 mL) inhalation Q4H PRN 30 days albuterol sulfate 90 mcg/actuation 2 inhalations inhalation Q6H PRN 30 days budesonide-formoterol 160-4.5 mcg/actuation (Symbicort) 2 puffs inhalation BID 30 days etanercept (Enbrel SureClick) 50 mg subcut QWEEK montelukast 10 mg PO DAILY 30 days Ventolin HFA 90 mcg/actuation (albuterol sulfate) 2 puffs PO Q4-6H PRN NS HPI Comments Details: Patient is a 39-year-old male former smoker with asthma, hypertension, GALE on CPAP and seronegative RA here today for follow up Interval History: Patient last seen 09/08/24 with [facility] - new patient evaluation for polyarticular joint pain - exam and x-rays consistent with rheumatoid arthritis - RF and CCP negative - started on methotrexate Today - on Enbrel 50 mg SC weekly - did not tolerate methotrexate experiencing worsening fatigue, stomach pain and nausea despite increasing folic acid - Enbrel started 09/2024 - Had an Enbrel misfire and had a delay in getting the medication - doing okay, some good days and some bad days Rheumatologic History: Initial History: Patient is a 39-year-old male former smoker with asthma, hypertension and GALE on CPAP here today for evaluation of polyarticular joint pain Patient notes that for the past few years he has been having polyarticular joint pain especially involving his hands, associated with prolonged AM stiffness, swelling and difficulty making a fist. Followed up with his PCP who got Hand XRs which showed periarticular osteopenia and erosions. No family history of RA but has a brother with MS Current Rheumatology Medication(s): Enbrel 50mg SC weekly [facility] Medical History (Updated 09/08/24 @ 12:49 by Miroslava Cornejo MD) Seronegative rheumatoid arthritis Chest pain Allergies GALE on CPAP Asthma-COPD overlap syndrome COVID-19 Pneumonitis Asthma Family History Father Substance use disorder Mental health disorder Sister Mental health disorder Brother Mental health disorder Mother Hypertension Other Asthma Social History Household Members: Family Housing: House Alcohol intake: former Patient Tobacco Use Status: Former Tobacco user Tobacco use type: Cigarette Years Smoked: 10 e-Cigarette/Vaping Use: Never Used Second Hand Smoke Exposure: No service: No Current occupational status: unemployed Cognitive needs: No Hearing needs: No Vision needs: No Review of Systems Narrative Review of Systems Constitutional: Denies fever, chills, weight loss ENT: Denies vision changes, eye pain or eye redness, dental caries, dry mouth GI: Denies nausea, vomiting, diarrhea, abdominal pain, change in BM Pulm: Denies SOB, BELCHER, hemoptysis, wheezing Cards: Denies chest pain, palpitations Skin: Denies Raynaud's, rash, nail changes, photosensitivity, [employer]: Denies headaches, weakness, paresthesias, recurrent falls MSK: as per HPI All other systems reviewed and are unremarkable except noted above Physical Exam Exam Exam: Vital signs reviewed Physical Examination CONSTITUITIONAL Patient alert and cooperative. Well appearing and in no apparent painful distress MSK Hands * Right Hand: Able to make a fist. No swelling or tenderness to palpation of the MCPs, PIPs or DIPs. No deformities noted. Scar noted over 3rd and 4th MCPs * Left Hand: Able to make a fist. No swelling or tenderness to palpation of the MCPs, PIPs or DIPs. No deformities noted. Wrists * Right Wrist: Full ROM to flexion and extension. No swelling. Mild TTP * Left Wrist: Full ROM to flexion and extension. No swelling. Mild TTP Elbows * Right Elbow: Full ROM. No swelling or TTP. No TTP of the medial epicondyle. No TTP of the lateral epicondyle * Left Elbow: Full ROM. No swelling or TTP. No TTP of the medial epicondyle. No TTP of the lateral epicondyle Shoulders * Right shoulder: Full ROM. No swelling noted. No TTP of the AC joint. No TTP of the subacromial bursa. No TTP of the posterior shoulder * Left shoulder: Full ROM. No swelling noted. No TTP of the AC joint. No TTP of the subacromial bursa. No TTP of the posterior shoulder Knees * Right knee: Full ROM. No swelling noted. No TTP of the knee joint line. No TTP of pes anserine bursa * Left knee: Full ROM. No swelling noted. No TTP of the knee joint line. No TTP of pes anserine bursa. Ankles * Right ankle: Good ankle dorsiflexion and plantar flexion. No swelling. No TTP of the ankle joint * Left ankle: Good ankle dorsiflexion and plantar flexion. No swelling. No TTP of the ankle joint Feet * Right foot: Negative squeeze test * Left foot: Negative squeeze test Tender points? * No tenderness to palpation of the bilateral trapezius, supraspinatus, anterior costochondral junctions, bilateral suboccipital muscle insertions SKIN No rashes Vital Signs: Last Vital Signs Pulse 96 01/03/25 13:42 BP 130/92 H 01/03/25 13:42 Pulse Ox 98 01/03/25 13:42 Oxygen Delivery Method Room Air 01/03/25 13:42 BMI result Body Mass Index 42.2 Results Reviewed Results Reviewed: Laboratory Tests 09/14/24 11:21 WBC 5.0 RBC 4.72 Hgb 12.2 L Hct 38.2 L Plt Count 210 ESR 8 Sodium 139 Potassium 4.0 Chloride 104 Carbon Dioxide 29 BUN 12 Creatinine 0.99 AST 18 ALT 14 C-Reactive Protein 0.24 Laboratory Tests 09/14/24 11:21 Hepatitis A IgM Ab Nonreactive Hep Bs Antigen Negative Hep Bs Antibody NONREACTIVE Hep B Core Total Ab Nonreactive Hepatitis C Ab (EIA) Nonreactive TB Test (T-Spot) Com Negative XR Right Hand 03/2024 FINDINGS: There is notable periarticular osteopenia. No definite fracture, dislocation, or suspicious bone lesion. Periarticular erosions are present in the MCPs, as well as the PIP joints of the second through fourth digits. These erosions are well-defined, and may be suggestive of rheumatoid arthropathy versus reactive arthritis. Possible erosion versus postoperative changes at the first CMC joint. Otherwise, carpal bones intact and normally aligned. No chondrocalcinosis. Soft tissues appear grossly normal. IMPRESSION: 1. Findings of inflammatory arthropathy with periarticular osteopenia and well-defined periarticular erosions in the MCPs and PIPs. Findings suggest rheumatoid arthritis versus reactive arthritis. Assessment & Plan Assessment & Plan (1) Seronegative rheumatoid arthritis: Comment: 08/2024 -RF/-CCP Code(s): M06.00 - Rheumatoid arthritis without rheumatoid factor, unspecified site Category: Medical Plan: #Seronegative RA Patient is a 39 y.o. male with new diagnosis of RA based on arthritis, periarticular osteopenia and erosions on XR. RF and CCP negative Currently on Enbrel for only 4 weeks. Discussed with patient and that you would need to see him on Enbrel for at least 3-4 months to rhythm make a decision about efficacy of the medication. 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 Plan: #Long-term Use of TNF Inhibitors: Enbrel Discussed with the patient the benefits and risks of TNF inhibitors for the management of the rheumatic condition Benefits include reduce pain, maintenance of remission and reduction of flares as well as progression of the disease Risks include injection sites/infusion reactions, serious infections (such as bacterial infections, opportunistic infections), malignancy, delaminating syndromes, autoimmune phenomena, CHF exacerbations, palmar plantar psoriasis and cytopenias Recommended rotating injection sites, and holding medication during and for up to 1 week after resolution of a febrile illness or open skin wound Plan I spent 30 minutes reviewing the record and labs, taking a history, examining the patient, discussing the treatment plan, ordering diagnostic work up and documenting in the medical record Medications: Refilled etanercept (Enbrel SureClick) 50 mg subcut QWEEK 4 mL 5RF M06.00 - Rheumatoid arthritis without rheumatoid factor, unspecified site Discontinued prednisone Take 3 pills for 14 days then 2 pills for 14 days then 1 pill for 14 days then stop Discontinued Reason: Doctor's Order 5 mg PO DIRECTED 90 tabs 0RF M06.00 - Rheumatoid arthritis without rheumatoid factor, unspecified site Coding Level of Care Code Est Pt Level 4 (54552) Complex EM visit Add On G2211 Diagnoses Seronegative rheumatoid arthritis M06.00 Encounter for monitoring of etanercept therapy Z51.81; Z79.620
[2025-01-03 13:42] VITALS: BP 130/92; PULSE 96; O2SAT 98; BMI 42.2
== END 2025-01-03 14:16 | disposition home or self-care (01) ==
LOC: HO.RHES 13:31
PROVIDERS: PCP Nurse Practitioner Family; Visit Provider Student in an Organized Health Care Education/Training Program
DX: M06.00 Rheumatoid arthritis without rheumatoid factor, unspecified site (principal); Z51.81 Encounter for therapeutic drug level monitoring; Z79.620 Long term (current) use of immunosuppressive biologic
CPT/HCPCS: 99214

== ENCOUNTER → 2025-01-03 13:30 | Outpatient (BNVA) | payer OTHER, SELFPAY | PROVIDERS: PCP Nurse Practitioner Family; Visit Provider Student in an Organized Health Care Education/Training Program | DX: M06.09 Rheumatoid arthritis without rheumatoid factor, multiple sites (principal); Z79.620 Long term (current) use of immunosuppressive biologic | CPT/HCPCS: 99212 ==

== ENCOUNTER 2025-01-18 12:26 | Outpatient (AMB) | payer OTHER, SELFPAY ==
--- NOTE | 2025-01-18 12:27 | A.OFFPC_ITS ---
Vital Signs 01/18/25 12:28 Height 5 ft 4 in Weight 253 lb BMI 43.4 BP 120/72 Blood Pressure Location Lt brachial Position Sitting Respiration 17 Pulse 85 Pulse Source Pulse Oximeter Temp 98.1 F Temp Source Oral Pulse Oximetry (%) 98 Oxygen Delivery Method Room Air Intake Visit Reasons: annual pe Intake Note: Pt is here today for PE. Allergies ampicillin Allergy (Severe, Verified 01/18/25 12:50) Rash penicillin V Allergy (Mild, Verified 01/18/25 12:50) RASH Medication List - Last Reconciled 01/18/25 by Gurdeep Dumont [facility]- albuterol sulfate 2.5 mg (3 mL) inhalation Q4H PRN 30 days albuterol sulfate 90 mcg/actuation 2 inhalations inhalation Q6H PRN 30 days budesonide-formoterol 160-4.5 mcg/actuation (Symbicort) 2 puffs inhalation BID 30 days etanercept (Enbrel SureClick) 50 mg subcut QWEEK montelukast 10 mg PO DAILY 30 days Ventolin HFA 90 mcg/actuation (albuterol sulfate) 2 puffs PO Q4-6H PRN NS Tobacco use date assessed: 01/18/25 Dental Screening Dental Screen Date: 01/18/25 Did you have a dental visit in the last 12 months?: No Did you have a dental problem in the last 6 months where you did not have access to dental care?: No Was dental information given to patient?: Patient declined HPI annual pe HPI Details History of Present Illness The patient is a 39 year old male presenting for a physical exam. The patient has a history of rheumatoid arthritis and is being followed by rheumatology. He started treatment with Enbrel approximately a month to a month and a half ago and is also on prednisone. He reports intermittent shakiness, which is thought to be related to prednisone or a side effect of Enbrel. The patient also reports weight gain and has not been as active. He denies chest pain, recent shortness of breath, abdominal pain, blood in stool, constipation, or diarrhea. Health Maintenance - The patient presented for a physical e xam. Social History - Exercise: Reports not being as active. - Weight management: Reports weight gain . Review of Systems - General: Reports intermittent shakines s and weight gain. - Cardiovascular: Denies chest pain. - Respiratory: Denies recent shortness o f breath. - Gastrointestinal: Denies abdominal kaushik n, hematochezia, constipation, and diarrhea. -denies any si or hi Physical Exam General: Cooperative, healthy appearing, comfortable, no acute distress, well developed, obese Orientation: Patient oriented x3 Limitations: No limitations Head: Normal to inspection Ears: Hearing grossly normal bilaterally Nose: Normal external nose present Face and sinus: Normal facial exam Eyes: Appearance normal, both eyes and all related structures Neck: Normal visual inspection and Yes full ROM Respiratory: Normal respiratory effort and able to speak in complete sentences. Clear to auscultation bilaterally Cardiovascular: Regular rate and rhythm. Normal S1 and S2 GI: Normal to inspection. Soft to palpation and nontender : Testicles without masses/lesions and no hernias appreciated Skin: No rashes or lesions noted Neuro: Patient oriented x3 Extremities: Normal to inspection Results Plan 1. Rheumatoid Arthritis The patient is followed by rheumatology for this condition. He started Enbrel about a month to a month and a half ago and is also on prednisone. Intermittent shakiness is reported, which may be a side effect of prednisone or Enbrel. It was explained that Enbrel will take time to work and has side effects. 2. Obesity The patient has experienced weight gain and has been less active. 3. Annual Physical Examination A physical exam was performed. Findings include obesity, clear lungs, and normal S1/S2 heart sounds; theremainder of the exam was benign. Discussion Notes I saw the patient for a physical exam. 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 We discussed his report of intermittent shakiness, which could be a side effect of either his prednisone or the new Enbrel medication. I explained to the patient that Enbrel will take some time to become fully effective and that, like any medication, it has potential side effects. Patient Instructions - Please be aware that your new medicati on, Enbrel, will take some time to start working. - The shakiness you are feeling may be a side effect of your medications. [facility] Medical History Seronegative rheumatoid arthritis Chest pain Allergies GALE on CPAP Asthma-COPD overlap syndrome COVID-19 Pneumonitis Asthma Family History Father Substance use disorder Mental health disorder Sister Mental health disorder Brother Mental health disorder Mother Hypertension Other Asthma Social History Household Members: Family Housing: House Alcohol intake: former Patient Tobacco Use Status: Former Tobacco user Tobacco use type: Cigarette Years Smoked: 10 e-Cigarette/Vaping Use: Never Used Second Hand Smoke Exposure: No service: No Current occupational status: unemployed Cognitive needs: No Hearing needs: No Vision needs: No Questionnaire PHQ-9 Over the last 2 weeks, how often have you been bothered by any of the following problems? 1. Little interest or pleasure in doing things: not at all 2. Feeling down, depressed, or hopeless: not at all 3. Trouble falling or staying asleep, or sleeping too much: several days 4. Feeling tired or having little energy: several days 5. Poor appetite or overeating: several days 6. Feeling bad about yourself - or that you are a failure or have let yourself or your family down: several days 7. Trouble concentrating on things, such as reading the newspaper or watching television: not at all 8. Moving or speaking so slowly that other people could have noticed. Or the opposite - being so fidgety or restless that you have been moving around a lot more than usual: not at all 9. Thoughts that you would be better off or of hurting yourself in some way: not at all Total score: 4 Depression Screening Interpretation: Negative Depression Screening Done: Yes 32024 - PHQ-9 Billing: Yes Source: Developed by Drs. Mandeep Montemayor, Rosey Rodriguez, Vitor Muñoz and colleagues, with an educational amina from [employer]. Thrive Questionnaire Date Thrive assessed: 01/18/25 I am a: Patient What is your living situation today?: I have a steady place to live Within the past 12 months, did the food you bought not last and you didn't have the money to get more?: Never true Within the past 12 months, did you worry whether your food would run out before you got money to buy more?: Never true Do you have trouble paying for medicines?: No Do you have trouble getting transportation to medical appointments?: No Do you have trouble paying your heating and electricity bill?: Yes Do you have trouble taking care of your child, family member or friend?: No Do you have trouble with day-to-day activities such as bathing, preparing meals, shopping, managing finances, etc.?: Yes Are you currently unemployed and looking for a job?: No Are you interested in more education?: No Please select the resources that you would like help with: None Currently or been in a relationship where the following occur: No concerns reported THRIVE Score: 1 AUDIT C Alcohol Use Questionnaire (AUDIT-C) 1. How often do you have a drink containing alcohol?: Never 3. How often do you have six or more drinks on one occasion?: Never Total Score: 0 NILDA-7 AMB Questionnaire NILDA-7 Date NILDA - 7 assessed: 01/18/25 Feeling nervous, anxious, or on edge: 0 = Not at all Not being able to stop or control worryin = Several days Worrying too much about different things: 1 = Several days Trouble relaxin = Not at all Being so restless that it is hard to sit still: 0 = Not at all Becoming easily annoyed or irritable: 1 = Several days Feeling afraid as if something awful might happen: 0 = Not at all Total NILDA-7 score (0-4 normal; 5-9 mild; 10-14 moderate; 15-21 severe): 3 Source: Developed by Drs. Mandeep Montemayor, Rosey Rodriguez, Vitor Muñoz and colleagues, with an educational amina from [employer]. NILDA-7 Assessment Billing NILDA-7 Assessment Tool: NILDA-7 Assessment 74282 Physical exam (Primary Care) Vital Signs: Last Vital Signs Temp 98.1 F 01/18/25 12:28 Pulse 85 01/18/25 12:28 Resp 17 01/18/25 12:28 BP 120/72 01/18/25 12:28 Pulse Ox 98 01/18/25 12:28 Oxygen Delivery Method Room Air 01/18/25 12:28 BMI result Body Mass Index 43.4 Tobacco/Smoking Status: Tobacco use Status Tobacco use date assessed 01/18/25 01/18/25 12:33 Patient Tobacco Use Status Former Tobacco user 01/18/25 12:33 Tobacco use type Cigarette 11/05/25 12:33 e-Cigarette/Vaping Use Never Used 01/18/25 12:33 PHQ-9: PHQ-9 Score PHQ-9: Total score 4 01/18/25 12:33 Depression Screening Interpretation: Negative Thrive Assessment: Date of Thrive Assessment Date Thrive assessed 01/18/25 01/18/25 12:33 Currently or been in a relationship where the following occur: No concerns reported Coding Level of Care Code Est Pt Prev Care 18-39y(84583) Diagnoses Physical exam Z00. Additional Codes NILDA-7 Assessment Billing - NILDA-7 Assessment Tool: NILDA-7 Assessment 62961 ([id number]) PHQ-9 - 40741 - PHQ-9 Billing: Yes ([id number]) Assessment & Plan Assessment & Plan (1) Physical exam: Code(s): Z00.00 - Encounter for general adult medical examination without abnormal findings Category: Medical Plan . Orders: Orders Complete Blood Count Auto Diff Today Z00.00 - Encounter for general adult medical examination without abnormal findings Comprehensive [place]. Panel Fast Today Z00.00 - Encounter for general adult medical examination without abnormal findings TSH reflex Free T4 Today Z00.00 - Encounter for general adult medical examination without abnormal findings UA CC w/rflx Micro + Cult Today Z00.00 - Encounter for general adult medical examination without abnormal findings Lipid Panel Today Z00.00 - Encounter for general adult medical examination without abnormal findings Medications: Refilled prednisone Take 3 pills for 14 days then 2 pills for 14 days then 1 pill for 14 days then stop 5 mg PO DIRECTED 90 tabs 0RF M06.00 - Rheumatoid arthritis without rheumatoid factor, unspecified site
[2025-01-18 12:28] VITALS: BP 120/72; PULSE 85; RESP 17; TEMP 36.7; O2SAT 98; BMI 43.4
== END 2025-01-18 13:02 | disposition home or self-care (01) ==
LOC: HO.HMCC 12:27
PROVIDERS: PCP Nurse Practitioner Family; Visit Provider Nurse Practitioner Family
DX: Z00.00 Encounter for general adult medical examination without abnormal findings (principal)

== ENCOUNTER → 2025-01-18 12:26 | Outpatient (BNVA) | payer OTHER, SELFPAY | PROVIDERS: PCP Nurse Practitioner Family; Visit Provider Nurse Practitioner Family | DX: Z00.00 Encounter for general adult medical examination without abnormal findings (principal); E66.9 Obesity, unspecified; M06.00 Rheumatoid arthritis without rheumatoid factor, unspecified site; Z68.41 Body mass index [BMI] 40.0-44.9, adult | CPT/HCPCS: 96127; 99395 ==

== ENCOUNTER 2025-01-31 10:42 | Outpatient (REF) | payer OTHER, SELFPAY ==
[2025-01-31 13:31] LABS: MANUAL DIFF FLAG NO
[2025-01-31 13:38] LABS: Appearance Urine Clear; Glucose Urine UA Negative (Negative); PH 5.5 (5.0-9.0); Specific Gravity - Urine 1.020 (1.005-1.025)
[2025-01-31 13:39] LABS: Hematocrit 39.6 % (42.0-52.0); Hemoglobin 12.5 g/dl (14.0-18.0); Imm Gran Abs Auto 0.04 X10*3/uL (0.00-0.03); Imm Gran Pct Auto 0.5 % (0.0-0.4); Lymphocytes Absolute Auto 2.9 X10*3/uL (1.2-4.9); Mean Corpuscular HGB Conc 31.6 g/dl (31.0-36.0); Mean Corpuscular Hemoglobin 26.1 pg (27.0-33.0); Mean Corpuscular Volume 82.7 fL (80.0-98.0); NRBC Abs Auto 0.000 X10*3/uL (0.0-0.012); NRBC Pct Auto 0.0 /100WBC (0.0-0.2); Platelet Count 229 X10*3/uL (160-400); Red Blood Count 4.79 X10*6/uL (4.60-5.80); White Blood Count 7.3 X10*3/uL (4.8-10.8)
[2025-01-31 14:05] LABS: Alanine Aminotransferase 19 U/L (0-40); Albumin Level 4.3 g/dL (3.5-5.0); Alkaline Phosphatase 43 U/L (39-117); Anion Gap 11 (12-20); Aspartate Amino Transferase 21 U/L (5-37); Blood Urea Nitrogen 16 mg/dL (9-16); Calcium 9.3 mg/dL (8.4-10.2); Carbon Dioxide 31 mmol/L (22-29); Chloride 102 mmol/L (96-108); Cholesterol 163 mg/dL (<200); Estimated Glomerular Filt Rate > 60; HDL Cholesterol 57 mg/dL (>40); Potassium 4.3 mmol/L (3.3-5.1); Sodium 140 mmol/L (135-145); Total Protein 7.0 g/dL (6.5-8.0); Triglycerides 76 mg/dL (<150)
== END 2025-01-31 10:43 | disposition home or self-care (01) ==
LOC: HO.HMGCLDS 10:42
PROVIDERS: Absent Provider Student in an Organized Health Care Education/Training Program; PCP Nurse Practitioner Family; Visit Provider Nurse Practitioner Family
DX: Z00.00 Encounter for general adult medical examination without abnormal findings (principal); M06.00 Rheumatoid arthritis without rheumatoid factor, unspecified site
CPT/HCPCS: 36415; 80053; 80061; 81003; 84443; 85025; 85652; 86140

== ENCOUNTER 2025-03-02 06:50 | Outpatient (AMB) | payer OTHER, SELFPAY ==
--- NOTE | 2025-03-02 07:49 | A.OFFPC_ITS ---
Intake Visit Reasons: Weight mngmt referral Allergies ampicillin Allergy (Severe, Verified 01/18/25 12:50) Rash penicillin V Allergy (Mild, Verified 01/18/25 12:50) RASH Tobacco use date assessed: 01/18/25 Dental Screening Dental Screen Date: 01/18/25 HPI Weight mngmt referral HPI Details History of Present Illness The patient is a 39 year old male presenting with a report of weight gain. He reports gaining approximately 20 pounds over the last couple of months. He has a history of rheumatoid arthritis and started treatment with Enbrel about three months ago. He does not feel the medication is helping significantly. The patient has a history of asthma and reports intermittent symptoms have occurred more often recently. Review of Systems - Constitutional: Reports weight gain of 20 pounds in the last two months. Denies flu-like symptoms. - Cardiovascular: Denies chest pain. - Respiratory: Reports more frequent int ermittent asthma symptoms. Denies shortness of breath. Plan 1. Abnormal Weight Gain The patient's recent weight gain of 20 pounds over two months is thought to be multifactorial, potentially contributed by his Enbrel medication. Seasonal changes, including being indoors more and increased food intake, are also considered contributing factors. A referral will be made to a files supervisor for further evaluation and treatment. 2. Rheumatoid Arthritis The patient has been on Enbrel for three months for rheumatoid arthritis but does not feel it is helping significantly. He will consider whether he wants to continue the medication and will discuss this with his electric golf cart repairer at a follow-up appointment in one month. 3. Asthma The patient reports an increase in the frequency of his intermittent asthma symptoms lately, which is believed to be related to weather changes. Discussion Notes I discussed with the patient his recent 20-pound weight gain over the last couple of months. I explained that this may be related to his Enbrel medication, which he started three months ago, as well as seasonal factors such as colder weather, being indoors more, and potentially eating more. I am referring him to a files supervisor for further evaluation and management. We also discussed his rheumatoid arthritis treatment. He expressed that he does not feel the Enbrel is providing much benefit and will consider discontinuing it after his follow-up with his electric golf cart repairer in one month. His intermittent asthma symptoms have been more frequent, which we attributed to recent weather changes. Patient Instructions - We will be referring you to a nutritio nist to help with the recent weight gain. - You have been on Enbrel for about thre e months for your rheumatoid arthritis and do not feel it is helping much. - Please discuss whether you should cont inue this medication with your electric golf cart repairer at your follow-up appointment next month. - Your asthma symptoms have been happeni ng more often lately, likely due to the weather. COUNT INCLUDES THE [facility] Medical History Seronegative rheumatoid arthritis Chest pain Allergies GALE on CPAP Asthma-COPD overlap syndrome COVID-19 Pneumonitis Asthma Family History Father Substance use disorder Mental health disorder Sister Mental health disorder Brother Mental health disorder Mother Hypertension Other Asthma Social History Household Members: Family Housing: House Alcohol intake: former Patient Tobacco Use Status: Former Tobacco user Tobacco use type: Cigarette Years Smoked: 10 e-Cigarette/Vaping Use: Never Used Second Hand Smoke Exposure: No service: No Current occupational status: unemployed Cognitive needs: No Hearing needs: No Vision needs: No Questionnaire Thrive Questionnaire Date Thrive assessed: 01/17/25 I am a: Patient What is your living situation today?: I have a steady place to live Within the past 12 months, did the food you bought not last and you didn't have the money to get more?: Never true Within the past 12 months, did you worry whether your food would run out before you got money to buy more?: Never true Do you have trouble paying for medicines?: No Do you have trouble getting transportation to medical appointments?: No Do you have trouble paying your heating and electricity bill?: Yes Do you have trouble taking care of your child, family member or friend?: No Do you have trouble with day-to-day activities such as bathing, preparing meals, shopping, managing finances, etc.?: Yes Are you currently unemployed and looking for a job?: No Are you interested in more education?: No Please select the resources that you would like help with: None Currently or been in a relationship where the following occur: No concerns reported THRIVE Score: 1 NILDA-7 AMB Questionnaire NILDA-7 Date NILDA - 7 assessed: 01/18/25 Source: Developed by Drs. Mandeep Montemayor, Rosey Rodriguez, Vitor Muñoz and colleagues, with an educational amina from [employer]. Physical exam (Primary Care) Tobacco/Smoking Status: Tobacco use Status Tobacco use date assessed 01/18/25 01/18/25 12:33 Patient Tobacco Use Status Former Tobacco user 01/18/25 12:33 Tobacco use type Cigarette 01/18/25 12:33 e-Cigarette/Vaping Use Never Used 01/18/25 12:33 Thrive Assessment: Date of Thrive Assessment Date Thrive assessed 01/17/25 02/28/25 17:00 Currently or been in a relationship where the following occur: No concerns reported Telehealth Telehealth Telehealth Platform: [facility] Location of provider rendering services: practice address Location of patient: address on file Patient Identification confirmed using: Name, : Yes Telehealth method: video Patient verbally consented to treatment: Yes Patient verbally consented to billing insurance company: Yes Patient informed of any privacy concerns related to visit: Yes Minutes spent on Phone/Video with Pt.: 15 Coding Level of Care Code Tele Est Pt Level 3 (95536) Diagnoses Seronegative rheumatoid arthritis M06.00 Obesity E66.9 Assessment & Plan Assessment & Plan (1) Seronegative rheumatoid arthritis: Comment: 08/2024 -RF/-CCP Code(s): M06.00 - Rheumatoid arthritis without rheumatoid factor, unspecified site Category: Medical (2) Obesity: Code(s): E66.9 - Obesity, unspecified Category: Medical Plan . Orders: Referrals [employer] [facility] Referral E66.9 - Obesity, unspecified
== END 2025-03-02 08:57 | disposition home or self-care (01) ==
LOC: HO.HMCC 06:51
PROVIDERS: PCP Nurse Practitioner Family; Visit Provider Nurse Practitioner Family
DX: M06.00 Rheumatoid arthritis without rheumatoid factor, unspecified site (principal); E66.9 Obesity, unspecified